=== PATIENT | male | born 1955 ===

== ENCOUNTER 2019-03-31 13:33 | Outpatient (REF) | payer BC, SELFPAY ==
[2019-03-31 21:36] LABS: Anion Gap 10.6 mmol/L (3-11); BUN 19 mg/dL (7-18); CO2 27.4 mmol/L (21.0-32.0); CREATININE 1.12 mg/dL (0.70-1.30); Calcium 9.1 mg/dL (8.5-10.1); Calculated LDL 95 mg/dL; Chloride 101 mmol/L (98-107); Cholesterol 141 mg/dL (50-200); Glucose 86 mg/dL (70-100); HDL Cholesterol 28 mg/dL (40-60); Potassium 3.9 mmol/L (3.5-5.1); Sodium 139 mmol/L (136-145); Triglyceride 92 mg/dL (30-150)
== END 2019-03-31 13:53 ==
LOC: NCHCN 13:33
PROVIDERS: PCP Internal Medicine; Visit Provider Internal Medicine
DX: R03.0 Elevated blood-pressure reading, without diagnosis of hypertension (principal); Z13.220 Encounter for screening for lipoid disorders
CPT/HCPCS: 80048; 80061

== ENCOUNTER 2019-08-25 15:25 | Outpatient (REF) | payer BC, SELFPAY ==
[2019-08-25 21:43] LABS: Calculated LDL 67 mg/dL (<100); Cholesterol 113 mg/dL (<200); HDL Cholesterol 30 mg/dL (40-60); Triglyceride 82 mg/dL (<150)
== END 2019-08-25 15:45 ==
LOC: NCHCN 15:25
PROVIDERS: PCP Internal Medicine; Visit Provider Internal Medicine
DX: E78.5 Hyperlipidemia, unspecified (principal)
CPT/HCPCS: 80061

== ENCOUNTER 2019-11-24 16:38 | Outpatient (REF) | payer BC, SELFPAY ==
[2019-11-24 21:33] LABS: Anion Gap 8.7 mmol/L (3-11); BUN 21 mg/dL (7-18); CO2 27.3 mmol/L (21.0-32.0); Calcium 8.7 mg/dL (8.5-10.1); Chloride 101 mmol/L (98-107); Glucose 124 mg/dL (74-106); Potassium 3.8 mmol/L (3.5-5.1); Sodium 137 mmol/L (136-145)
== END 2019-11-24 16:58 ==
LOC: NCHCN 16:38
PROVIDERS: PCP Internal Medicine; Visit Provider Internal Medicine
DX: I10 Essential (primary) hypertension (principal)
CPT/HCPCS: 80048

== ENCOUNTER 2020-09-27 13:28 | Outpatient (REF) | payer BC, SELFPAY ==
[2020-09-27 14:41] LABS: ALT 31 U/L (16-63); AST 19 U/L (15-37); Albumin 3.8 g/dL (3.4-5.0); Alkaline Phosphatase 61 U/L (46-116); Anion Gap 9.2 mmol/L (3-11); BUN 17 mg/dL (7-18); Bilirubin, Total 0.5 mg/dL (0.2-1.0); CO2 25.8 mmol/L (21.0-32.0); CREATININE 1.1 mg/dL (0.70-1.30); Calcium 8.7 mg/dL (8.5-10.1); Calculated LDL 58 mg/dL (<100); Chloride 104 mmol/L (98-107); Cholesterol 98 mg/dL (<200); Glucose 94 mg/dL (74-106); HDL Cholesterol 28 mg/dL (40-60); Potassium 4.4 mmol/L (3.5-5.1); Sodium 139 mmol/L (136-145); Total Protein 7.4 g/dL (6.4-8.2); Triglyceride 60 mg/dL (<150)
== END 2020-09-27 13:29 | disposition home or self-care (01) ==
LOC: NCHCN 13:28
PROVIDERS: PCP Internal Medicine; Visit Provider Internal Medicine
DX: Z00.00 Encounter for general adult medical examination without abnormal findings (principal); E78.5 Hyperlipidemia, unspecified
CPT/HCPCS: 80053; 80061

== ENCOUNTER 2021-01-22 16:58 | Outpatient (CLI) | payer OTHER, SELFPAY ==
--- NOTE | 2021-01-22 | DI.RAD_ITS ---
Exam(s) XR HUMERUS RT EXAM: XR HUMERUS RT CLINICAL HISTORY: RT UPPPER ARM PAIN M79.621, S/P FALL. TECHNIQUE: 2D digital imaging was performed. COMPARISON: No exams were available for comparison FINDINGS: No evidence of fracture or dislocation. No abnormal soft tissue calcifications. No osseous lesions IMPRESSION: DATA REPOSITORY: RADIATION DOSE DELIVERED:
--- NOTE | 2021-01-22 16:46 | DI.VRAD_ITS ---
PROCEDURE INFORMATION: Exam: XR Right Humerus Exam date and time: 01/22/2021 3:58 PM Age: 65 years old Clinical indication: Patient HX: Right upper arm pain, S/P fall, felt pop TECHNIQUE: Imaging protocol: XR Right humerus. Views: 2 or more views. COMPARISON: No relevant prior studies available. FINDINGS: Bones/joints: No acute fracture identified. No dislocation seen. Soft tissues: No unusual soft tissue calcifications. IMPRESSION: 1. No acute fracture or dislocation identified. If symptoms persist or remain concerning, consider follow-up imaging in 7 days or alternative imaging modalities. Dictated and Authenticated by: Breonna Larios MD. Ordering:ABEL Guido MD
== END 2021-01-22 17:18 ==
PROVIDERS: PCP Internal Medicine; Visit Provider Nurse Practitioner Family
DX: G89.11 Acute pain due to trauma (principal); M79.621 Pain in right upper arm; X50.1XXA Overexertion from prolonged static or awkward postures, initial encounter; W19.XXXA Unspecified fall, initial encounter
CPT/HCPCS: 73060

== ENCOUNTER 2022-03-23 08:14 | Outpatient (REF) | payer BC, SELFPAY ==
[2022-03-23 15:24] LABS: Anion Gap 8.8 mmol/L (3-11); BUN 13 mg/dL (7-18); CO2 28.2 mmol/L (21.0-32.0); CREATININE 1.2 mg/dL (0.70-1.30); Calcium 9.4 mg/dL (8.5-10.1); Calculated LDL 61 mg/dL (<100); Chloride 100 mmol/L (98-107); Cholesterol 116 mg/dL (<200); Estimated GFR 67.11 (mL/min/1.73m2); Glucose 97 mg/dL (74-106); HDL Cholesterol 32 mg/dL (40-60); Potassium 4.2 mmol/L (3.5-5.1); Sodium 137 mmol/L (136-145); Triglyceride 118 mg/dL (<150)
[2022-03-23 22:34] LABS: PSA, Screening 1.3 ng/mL (<=4.5)
== END 2022-03-23 08:15 | disposition home or self-care (01) ==
LOC: NCHCN 08:14
PROVIDERS: PCP Internal Medicine; Visit Provider Internal Medicine
DX: I10 Essential (primary) hypertension (principal); E78.5 Hyperlipidemia, unspecified; Z00.00 Encounter for general adult medical examination without abnormal findings; Z12.5 Encounter for screening for malignant neoplasm of prostate
CPT/HCPCS: 80048; 80061; 84153

== ENCOUNTER 2023-04-07 19:05 | Outpatient (REF) | payer MEDICARE, SELFPAY ==
[2023-04-07 18:49] LABS: HCT 43.7 % (40.0-50.0); HGB 14.6 g/dL (13.5-17.5); MCH 31.7 pg (27.0-33.0); MCHC 33.4 % (32.0-36.0); MCV 95 fL (80-95); MPV 9.5 fL (8.0-11.0); Platelet Count 282 10^3/uL (130-400); RBC 4.61 10^6/uL (4.36-5.78); RDW 12.6 % (11.8-14.1); RDW-SD 43.9 fL; WBC 6.43 10^3/uL (4.4-10.8)
[2023-04-07 19:14] LABS: Anion Gap 6.8 mmol/L (3-11); BUN 16 mg/dL (7-18); CO2 26.2 mmol/L (21.0-32.0); CREATININE 1.4 mg/dL (0.70-1.30); Calcium 9.7 mg/dL (8.5-10.1); Chloride 103 mmol/L (98-107); Estimated GFR 55.43 (mL/min/1.73m2); Glucose 96 mg/dL (74-106); Potassium 4.4 mmol/L (3.5-5.1); Sodium 136 mmol/L (136-145)
== END 2023-04-07 19:06 | disposition home or self-care (01) ==
LOC: NCHCN 19:05
PROVIDERS: PCP Internal Medicine; Visit Provider Internal Medicine
DX: I10 Essential (primary) hypertension (principal); E78.5 Hyperlipidemia, unspecified
CPT/HCPCS: 80048; 85027

== ENCOUNTER 2023-10-04 11:11 | Outpatient (REF) | payer MEDICARE, SELFPAY ==
[2023-10-04 16:07] LABS: Anion Gap 10.9 mmol/L (3-11); BUN 16 mg/dL (7-18); CO2 25.1 mmol/L (21.0-32.0); CREATININE 1.3 mg/dL (0.70-1.30); Calcium 9.2 mg/dL (8.5-10.1); Chloride 104 mmol/L (98-107); Estimated GFR 60.21 (mL/min/1.73m2); Glucose 110 mg/dL (74-106); Potassium 4.2 mmol/L (3.5-5.1); Sodium 140 mmol/L (136-145)
== END 2023-10-04 11:12 | disposition home or self-care (01) ==
LOC: NCHCN 11:11
PROVIDERS: PCP Internal Medicine; Visit Provider Internal Medicine
DX: I10 Essential (primary) hypertension (principal)
CPT/HCPCS: 80048

== ENCOUNTER 2024-01-27 19:13 | Outpatient (REF) | payer MEDICARE, SELFPAY ==
[2024-01-27 21:21] LABS: HCT 40.4 % (40.0-50.0); HGB 13.8 g/dL (13.5-17.5); MCH 31.2 pg (27.0-33.0); MCHC 34.2 % (32.0-36.0); MCV 91 fL (80-95); MPV 8.9 fL (8.0-11.0); Platelet Count 309 10^3/uL (130-400); RBC 4.42 10^6/uL (4.36-5.78); RDW 12.1 % (11.8-14.1); RDW-SD 40.8 fL; WBC 11.92 10^3/uL (4.4-10.8)
[2024-01-27 21:44] LABS: ALT 32 U/L (16-63); AST 28 U/L (15-37); Albumin 3.3 g/dL (3.4-5.0); Alkaline Phosphatase 59 U/L (46-116); Anion Gap 9.3 mmol/L (3-11); BUN 29 mg/dL (7-18); Bilirubin, Total 0.72 mg/dL (0.2-1.0); CO2 27.7 mmol/L (21.0-32.0); CREATININE 1.9 mg/dL (0.70-1.30); Calcium 8.8 mg/dL (8.5-10.1); Chloride 100 mmol/L (98-107); Estimated GFR 38.19 (mL/min/1.73m2); Glucose 115 mg/dL (74-106); Potassium 4.3 mmol/L (3.5-5.1); Sodium 137 mmol/L (136-145)
[2024-02-01 12:35] LABS: Helicobacter pylori Ag, Feces Negative (Negative)
== END 2024-01-27 19:14 | disposition home or self-care (01) ==
LOC: NCHCN 19:13
PROVIDERS: PCP Internal Medicine; Visit Provider Internal Medicine
DX: R53.83 Other fatigue (principal); R10.13 Epigastric pain
CPT/HCPCS: 80053; 85027; 87338; 84443

== ENCOUNTER 2024-02-07 10:20 | Outpatient (REF) | payer MEDICARE, SELFPAY ==
[2024-02-07 16:33] LABS: PROTEIN 19.7 mg/dL
[2024-02-07 16:50] LABS: Bacteria Negative HPF (Negative); C & S Indicated? No; Crystals Negative HPF (Negative); Epithelial Cells Negative HPF (Negative); Mucus Trace (Negative); WBC 0-2 HPF (0-5)
[2024-02-07 17:31] LABS: Anion Gap 8.3 mmol/L (3-11); BUN 10 mg/dL (7-18); CO2 27.7 mmol/L (21.0-32.0); CREATININE 1.4 mg/dL (0.70-1.30); Calcium 9.8 mg/dL (8.5-10.1); Chloride 104 mmol/L (98-107); Estimated GFR 55.09 (mL/min/1.73m2); Glucose 117 mg/dL (74-106); Potassium 4.3 mmol/L (3.5-5.1); Sodium 140 mmol/L (136-145)
== END 2024-02-07 10:21 | disposition home or self-care (01) ==
LOC: NCHCN 10:20
PROVIDERS: PCP Internal Medicine; Visit Provider Internal Medicine
DX: N17.9 Acute kidney failure, unspecified (principal); R82.998 Other abnormal findings in urine; R79.89 Other specified abnormal findings of blood chemistry
CPT/HCPCS: 80048; 81015; 82565; 84156

== ENCOUNTER 2024-11-17 08:15 | Outpatient (REF) | payer MEDICARE, SELFPAY ==
[2024-11-17 14:59] LABS: HCT 45.6 % (40.0-50.0); HGB 14.7 g/dL (13.5-17.5); MCH 30.7 pg (27.0-33.0); MCHC 32.2 % (32.0-36.0); MCV 95 fL (80-95); MPV 9.3 fL (8.0-11.0); Platelet Count 256 10^3/uL (130-400); RBC 4.79 10^6/uL (4.36-5.78); RDW 12.1 % (11.8-14.1); RDW-SD 42.5 fL; WBC 5.75 10^3/uL (4.4-10.8)
[2024-11-17 15:56] LABS: ALT 31 U/L (16-63); AST 23 U/L (15-37); Albumin 4.3 g/dL (3.4-5.0); Alkaline Phosphatase 55 U/L (46-116); Anion Gap 8.2 mmol/L (3-11); BUN 14 mg/dL (7-18); Bilirubin, Total 0.7 mg/dL (0.2-1.0); CO2 27.8 mmol/L (21.0-32.0); CREATININE 1.4 mg/dL (0.70-1.30); Calcium 9.9 mg/dL (8.5-10.1); Calculated LDL 46 mg/dL (<100); Chloride 102 mmol/L (98-107); Cholesterol 107 mg/dL (<200); Estimated GFR 54.75 (mL/min/1.73m2); Glucose 106 mg/dL (74-106); HDL Cholesterol 28 mg/dL (>or=40); Potassium 4.8 mmol/L (3.5-5.1); Sodium 138 mmol/L (136-145); Total Protein 8.4 g/dL (6.4-8.2); Triglyceride 169 mg/dL (<150)
[2024-11-17 22:01] LABS: PSA, Diagnostic 1.5 ng/mL (<=4.5)
== END 2024-11-17 08:16 | disposition home or self-care (01) ==
LOC: NCHCN 08:15
PROVIDERS: PCP Internal Medicine; Visit Provider Internal Medicine
DX: I10 Essential (primary) hypertension (principal)
CPT/HCPCS: 80053; 80061; 85027; 84153